=== PATIENT | female | born 1995 | race Asian ===

== ENCOUNTER 2021-05-18 11:49 | Day surgery (SDC) | payer OTHER ==
[~2021-05-18] VITALS: Ht 162.6 cm; Wt 57.6 kg
[2021-05-18] MEDS ORDERED: MIDAZOLAM 5 MG/5 ML VIAL ONE (13:04)
[2021-05-18] MEDS ORDERED: fentaNYL citrate 0.05 MG/ML VIAL ONE (13:04)
[2021-05-18] MEDS ORDERED: LIDOCAINE VISCOUS 2% 20 ML UDC ONE (13:07)
[2021-05-18] MEDS ORDERED: SIMETHICONE 40 MG/0.6 ML ONE (13:07)
[2021-05-18] MEDS ORDERED: fentaNYL citrate 0.05 MG/ML VIAL IVP ONE (13:30)
[2021-05-18] MEDS ORDERED: MIDAZOLAM 2 MG/2 ML VIAL IVP ONE (13:30)
== END 2021-05-18 14:00 | disposition home or self-care (01) ==
LOC: MDS 11:49
PROVIDERS: ATTEND Internal Medicine Gastroenterology
DX: K21.9 Gastro-esophageal reflux disease without esophagitis (principal); K59.00 Constipation, unspecified; F90.9 Attention-deficit hyperactivity disorder, unspecified type; Z79.899 Other long term (current) drug therapy
CPT/HCPCS: 43235; J2250; J3010